=== PATIENT | male | born 1960 | race Hispanic/Latino ===

== ENCOUNTER 2024-08-27 06:34 | Emergency (ER) | payer BC, OTHER ==
[~2024-08-27] VITALS: Ht 165.1 cm; Wt 77.1 kg
[~2024-08-27 06:34] MED LIST: ASPIRIN81 MG PO; LIPITOR20 MG PO; LOSARTAN POTASS50 MG PO; PLAVIX75 MG PO; TOPROL XL25 MG PO
[2024-08-27 06:36] VITALS: TEMP 98.5
[2024-08-27] MEDS: FAMOTIDINE 20 MG/2 ML VIAL IV STA (06:53)
[2024-08-27] MEDS: DIPHENHYDRAMINE HCL INJ 50 MG/ML VIAL IV ONE (06:54)
[2024-08-27] MEDS: METHYLPREDNISOLONE SOD SUCC 125 MG/2ML VIAL IV ONE (06:58)
[2024-08-27 07:09] VITALS: PULSE 66; RESP 16; O2SAT 99
[2024-08-27 07:10] LABS: BASOPHILS # (AUTO) 0.1 (0.0-0.1); BASOPHILS % 0.8 % (0.0-1.0); EOSINOPHILS # (AUTO) 0.2 (0.0-0.4); EOSINOPHILS % 3.1 % (0.0-6.0); HEMOGLOBIN 15.1 g/dL (14.0-18.0); LYMPHOCYTES % 25.9 % (18.0-39.1); MEAN CORPUSCULAR HEMOGLOBIN 32.3 pg (28-32); MEAN CORPUSCULAR HGB CONC 34.3 g/dL (31-35); MONOCYTES # (AUTO) 0.8 (0.2-0.8); MONOCYTES % 9.8 % (4.4-11.3); NEUTROPHILS # (AUTO) 4.7 (2.1-6.9); NEUTROPHILS % 59.9 % (38.7-80.0); PLATELET COUNT 308 x10e3/uL (140-360); RED BLOOD COUNT 4.68 x10e6/uL (4.3-5.7); WHITE BLOOD COUNT 7.76 x10e3/uL (4.8-10.8)
[2024-08-27 07:23] LABS: INR 0.94; PARTIAL THROMBOPLASTIN TIME 26.1 seconds (23.8-35.5); PROTHROMBIN TIME 13.2 seconds (11.9-14.5)
[2024-08-27 07:29] LABS: ALBUMIN 4.3 g/dL (3.5-5.0); ALBUMIN/GLOBULIN RATIO 1.5 (0.8-2.0); ANION GAP 14.6 mmol/L (8-16); CREATININE, SERUM 1.06 mg/dL (0.72-1.25); POTASSIUM 3.6 mmol/L (3.5-5.1); TOTAL PROTEIN 7.1 g/dL (6.5-8.1)
[2024-08-27] MEDS ORDERED: MEDROL4 M2 PO (08:19)
[2024-08-27] MEDS ORDERED: EPINEPHRIN0.3 MG/0.3 IM (08:22)
== END 2024-08-27 08:42 | disposition home or self-care (01) ==
LOC: ER 06:38
DX: K14.9 Disease of tongue, unspecified (principal); T78.40XA Allergy, unspecified, initial encounter; I10 Essential (primary) hypertension; R73.03 Prediabetes; E78.5 Hyperlipidemia, unspecified; I25.10 Atherosclerotic heart disease of native coronary artery without angina pectoris; Z95.5 Presence of coronary angioplasty implant and graft
CPT/HCPCS: 36415; 80053; 85025; 85610; 85730; 99284; J1200; J2919